=== PATIENT | male | born 1940 | race Caucasian/White ===

== ENCOUNTER 2023-04-07 12:50 | Inpatient (IN) ==
[2023-04-07 13:02] LABS: POC Calcium, Ionized 1.02 (1.16-1.32); POC Creatinine 2.7 (0.6-1.2); POC Potassium 3.8 (3.3-5.1)
[2023-04-07] MEDS ORDERED: 0.9 % SODIUM CHLORIDE 1,000 ML IV ONE (13:07)
--- NOTE | 2023-04-07 13:09 | Emergency Department Note ---
HPI General Chief complaint: Bleeding Other Stated complaint: dark colored stools Time Seen by Provider: 04/07/23 12:56 Source: patient Mode of arrival: EMS Limitations: no limitations History of Present Illness HPI Narrative: Narrative: This patient presents by EMS with complaint of possible GI bleed. Patient began Dinar note dark-colored stools last night. They have become more profuse and he passed a large black tarry stool this morning. He also became very weak which is why EMS was requested. Patient does endorse some abdominal discomfort, primarily in the upper abdomen. He has not had any vomiting. He has not noted any bright red blood, and before yesterday did not note any color change to his stools. He does endorse he had a bit of diarrhea. He is been without fevers or chills. He has no prior history of GI bleed. He does have a feeding tube which was placed in June. The patient and his family cannot recall if it is a G- tube or a J-tube. They report that it was placed due to complications of aspiration. Patient also has history significant for cardiac valve replacement. He does take Coumadin due to having a mechanical valve. They did check his INR this morning and report it was 3.6. He is not having any chest discomfort. He does endorse feeling weak and unable to try to stand or walk due to feeling weak. He typically completes his ADLs without difficulty. Related Data Home Medications Medication Instructions Recorded Confirmed allopurinol 100 mg tablet 200 mg PO QDAY 01/12/23 03/24/23 aspirin 81 mg tablet,delayed 81 mg PO QDAY 01/12/23 03/24/23 release dutasteride 0.5 mg capsule 0.5 mg PO QDAY 01/12/23 03/24/23 ezetimibe 10 mg tablet 10 mg PO QDAY 01/12/23 03/24/23 lansoprazole 30 mg capsule,delayed 30 mg PO QDAY 02/05/23 03/24/23 release potassium chloride 10 mEq 20 meq PO BID 02/05/23 03/24/23 tablet,extended release tamsulosin 0.4 mg capsule (Flomax) 0.4 mg PO BID 02/05/23 03/24/23 topiramate 100 mg tablet 150 mg PO BID 02/05/23 03/24/23 torsemide 100 mg tablet 100 mg PO BID 02/05/23 03/24/23 Previous Rx's Medication Instructions Recorded nystatin 100,000 unit/gram topical 1 applic topical TID #60 grams 02/05/23 powder Jevity 8 oz feeding tube Q4H #1 Bottle 02/10/23 ondansetron 8 mg disintegrating 8 mg PO Q6H #120 tabs 02/19/23 tablet oxycodone-acetaminophen 7.5 mg-325 1 tab PO QID #120 tabs 02/19/23 mg tablet amoxicillin 500 mg tablet 500 mg PO QDAY #32 tabs 03/03/23 metoclopramide HCl 10 mg tablet 10 mg PO BID PRN Nausea #90 tabs 03/03/23 warfarin 5 mg tablet 5 mg PO QDAY #90 tabs 03/03/23 duloxetine 60 mg capsule,delayed 60 mg PO QDAY #90 caps 03/20/23 release hydroxyzine HCl 25 mg tablet 25 mg PO TID PRN itching #90 tabs 03/20/23 Allergies Allergy/AdvReac Type Severity Reaction Status Date / Time omeprazole Allergy Mild Rash Verified 04/07/23 15:19 atorvastatin Allergy Unknown unknown Verified 04/07/23 12:55 Sulfa (Sulfonamide AdvReac Severe toxic Verified 04/07/23 15:19 Antibiotics) hepatitis Zolpidem [From Ambien] AdvReac Mild sleep Verified 04/07/23 15:19 walking Review of Systems ROS ROS Narrative: Narrative: Pertinent positives and negatives as noted in HPI. All other systems reviewed and negative. PFSH Narrative Patient History Narrative: Narrative: Medical/Surgical/Family History All Active Problems (Updated 04/07/23 @ 17:44 by Zonia Glover PA-C) Acute upper GI bleed (Acute) Other low back pain (Chronic) Constipation (Chronic) Depression (Chronic) Spinal cord stimulator status (Chronic) Pruritus (Chronic) CHF (congestive heart failure) (Chronic) S/P aortic valve replacement (Chronic) Aspiration of fluid as cause of abnormal reaction of patient or of later complication (Chronic) Iron deficiency anemia (Chronic) Candidiasis of genitalia (Chronic) Back pain (Chronic) Leg pain (Chronic) Constipation (Chronic) Thoracic spine pain (Chronic) Knee pain (Chronic) Swelling of joint, wrist, left (Chronic) Right wrist pain (Chronic) Right hand pain (Chronic) Thoracolumbar back pain (Chronic) Polyarthralgia (Chronic) Myalgia (Chronic) Paresthesia and pain of both upper extremities (Chronic) Spondylosis without myelopathy or radiculopathy, 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, lumbar region (Chronic) Radiculopathy, lumbar region (Chronic) Left leg pain (Chronic) Chronic pain (Chronic) Low back pain (Chronic) Heart disease (Chronic) History of tobacco use (Chronic) Esophageal reflux (Chronic) Hypertension (Chronic) Foot ulcer, left (Chronic) Hypoxia (Chronic) Nausea & vomiting (Chronic) Benign prostatic hyperplasia with urinary frequency (Chronic) Medical History Aspiration of fluid as cause of abnormal reaction of patient or of later complication Back pain Candidiasis of genitalia CHF (congestive heart failure) Chronic pain Constipation Depression Esophageal reflux Foot ulcer, left Heart disease s/p AVR History of tobacco use Hypertension Hypoxia Iron deficiency anemia Knee pain Left leg pain Leg pain Low back pain Myalgia Nausea & vomiting Other low back pain Paresthesia and pain of both upper extremities Polyarthralgia Pruritus Radiculopathy, lumbar region Right hand pain Right wrist pain Spinal cord stimulator status Spondylosis without myelopathy or radiculopathy, lumbar region Spondylosis without myelopathy or radiculopathy, lumbosacral region Swelling of joint, wrist, left Thoracic spine pain Thoracolumbar back pain Surgical History History of carpal tunnel surgery (~1992) Bilateral History of cataract surgery (~2013) Bilateral History of cervical spinal surgery (~03/1998) History of colonoscopy (02/06/17) History of endoscopic gastrointestinal surgery (~06/2022) History of esophagogastroduodenoscopy (EGD) (11/19/20) History of eye surgery Retinal detachment History of heart valve replacement (~1998) History of hemorrhoidectomy (02/06/17) History of hernia repair (04/23/20) History of nasal septoplasty (01/05/19) History of surgery SCS Permanent w/sed 11/10 SCS Trial w/sed 10/27/201910/09 MBB L2-S1 bilat w/o sed 09/24/201705/09 LESI #1 L4-5 w/o sed 04/28/2017 History of tonsillectomy (~1946) S/P aortic valve replacement Family History Family/Other Abdominal aortic aneurysm (AAA) Malignant tumor of breast Malignant tumor of colon Coronary arteriosclerosis DM type 2 (diabetes mellitus, type 2) Carcinoma of prostate Stroke Mother Malignant tumor of breast Aunt DM type 2 (diabetes mellitus, type 2) Father Heart attack Stroke Uncle Carcinoma of prostate Social History Smoking Status: Never smoker Alcohol Intake Frequency: does not drink Substance Use: does not use Exam Narrative Narrative: Narrative: Vital signs noted General: mild distress. Skin: Warm. Dry. No rash. Normal color. Eyes: PERRL. EOMI. Mouth: Membranes moist. Normal inspection. Neck: Good ROM. No meningeal signs. Supple. Cardiovascular: Regular rate and rhythm. Systolic murmur Respiratory: No respiratory distress. Breath sounds equal. No wheezing/rales/rhonchi. Gastrointestinal: Abdomen soft. Feeding tube in place to abdominal wall. Focal tenderness palpation of the upper abdomen. No rebound tenderness or guarding. There are some remanence from the patient's prior bowel movement that do appear to be melanotic. On AMINATA the patient has frankly bloody stool which is dark in appearance. Is guaiac positive. Extremities: No tenderness. No swelling. No erythema. No edema. Good peripheral pulses x 4 Neurological: No focal neurological deficits observed. CN 2-12 intact. Alert. Oriented x 3 General Limitations: no limitations Course Course Course Narrative: The following orders are placed and reviewed by myself: IV access established. Patient does have low blood pressure upon arrival and is given normal saline for hypotension CBC and CHEM panel reviewed Hematocrit on Chem-8 is 27, coinciding with hemoglobin of 9. Labs CBC Chem-8 creatinine is 1.3. BUN is 21 H&H shows mild decrease compared to prior lab values Based on acute blood loss and patient's hypotension 2 units of crossmatched blood were ordered. Did speak with college counselor who is available for daytime emergent procedures, Dr. Alva, who will take the patient to endoscopy suite. He asked that the patient be given a unit of plasma and lieu of vitamin K for reversal of Coumadin. He also recommends the patient receive only blood products for hypotension and not IV fluid. Patient transferred to endoscopy suite with disposition after procedure to be determined by Dr. Alva. Vital Signs Vital signs: Vital Signs Temperature 97.7 F 04/07/23 12:50 Pulse Rate 113 H 04/07/23 12:50 Respiratory Rate 16 04/07/23 12:50 Blood Pressure 88/64 04/07/23 12:50 Oxygen Delivery Method Room Air 04/07/23 12:50 Oxygen Flow Rate (L/min) 3 04/07/23 12:50 Temperature 97.7 F 04/07/23 12:50 Pulse Rate 97 H 04/07/23 16:57 Respiratory Rate 14 04/07/23 16:57 Blood Pressure 109/71 04/07/23 16:56 Pulse Oximetry (%) 97 04/07/23 16:57 Oxygen Delivery Method Nasal Cannula 04/07/23 16:07 Oxygen Flow Rate (L/min) 3 04/07/23 16:07 MDM MDM Narrative Medical decision making narrative: Narrative: Lab Data 04/07/23 13:12 04/07/23 13:12 Labs: Lab Results 04/07/23 04/07/23 04/07/23 Range/Units 12:59 13:12 13:12 WBC 14.3 H (4.5-11.0) K/mcL RBC 2.95 L (4.63-6.08) M/mcL Hgb 9.1 L (13.7-17.5) g/dL Hct 27.1 L (40.1-51.0) % POC Hct 28.0 L (41-55) MCV 91.9 (80.0-100.0) fL MCH 30.8 (26.0-34.0) pg MCHC 33.6 (31.0-36.0) g/dL RDW 15.4 H (11.5-14.5) % Plt Count 278 (140-440) K/mcL MPV 10.9 (8.8-12.5) fL Immature Gran % (Auto) 0.4 (0.0-0.5) % Neut % (Auto) 49.2 (38.0-78.0) % Lymph % (Auto) 38.8 (15.5-49.0) % [place] % (Auto) 8.6 (1.0-12.0) % Eos % (Auto) 2.3 (0.0-7.0) % Baso % (Auto) 0.7 (0.0-2.0) % Lymph # (Auto) 5.54 H (1.50-4.80) K/mcL [place] # (Auto) 1.22 H (0.10-0.90) K/mcL Eos # (Auto) 0.33 (0.00-0.70) K/mcL Baso # (Auto) 0.10 (0.00-0.30) K/mcL Immature Gran # 0.05 (0.00-0.05) K/mcl Absolute Neutrophils 7.02 (1.80-8.00) K/mcL PT INR POC Sodium 138 (133-145) Sodium 137 (133-145) mmol/L POC Potassium 3.8 (3.3-5.1) Potassium 3.9 (3.3-5.1) mmol/L POC Chloride 101 (96-108) Chloride 100 (96-108) mmol/L Carbon Dioxide 22 (22-30) mmol/L POC Total CO2 22.0 (22-30) Anion Gap 15.0 (8.0-16.0) POC BUN 53 H (6-20) BUN 57 H (8-23) mg/dL Creatinine 2.2 H (0.7-1.2) mg/dL POC Creatinine 2.7 H (0.6-1.2) GFR Calculation 27 Glucose 205 H (70-105) mg/dL POC Glucose 201 H (70-105) Calcium 8.2 L (8.6-10.4) mg/dL POC WB Ioniz Calcium 1.02 L (1.16-1.32) Total Bilirubin 0.2 (0.1-1.0) mg/dL AST 21 (<40) U/L ALT 21 (<40) U/L Alkaline Phosphatase 74 (39-117) U/L Total Protein 5.4 L (5.9-8.4) gm/dL Albumin 3.4 (3.2-5.2) gm/dL Globulin 2.0 L (2.2-3.7) gm/dL Albumin/Globulin Ratio 1.7 (1.0-2.3) 04/07/23 04/07/23 Range/Units 13:12 14:05 WBC (4.5-11.0) K/mcL RBC (4.63-6.08) M/mcL Hgb (13.7-17.5) g/dL Hct (40.1-51.0) % POC Hct (41-55) MCV (80.0-100.0) fL MCH (26.0-34.0) pg MCHC (31.0-36.0) g/dL RDW (11.5-14.5) % Plt Count (140-440) K/mcL MPV (8.8-12.5) fL Immature Gran % (Auto) (0.0-0.5) % Neut % (Auto) (38.0-78.0) % Lymph % (Auto) (15.5-49.0) % [place] % (Auto) (1.0-12.0) % Eos % (Auto) (0.0-7.0) % Baso % (Auto) (0.0-2.0) % Lymph # (Auto) (1.50-4.80) K/mcL [place] # (Auto) (0.10-0.90) K/mcL Eos # (Auto) (0.00-0.70) K/mcL Baso # (Auto) (0.00-0.30) K/mcL Immature Gran # (0.00-0.05) K/mcl Absolute Neutrophils (1.80-8.00) K/mcL PT TNP 41.7 H INR TNP 4.2 H POC Sodium (133-145) Sodium (133-145) mmol/L POC Potassium (3.3-5.1) Potassium (3.3-5.1) mmol/L POC Chloride (96-108) Chloride (96-108) mmol/L Carbon Dioxide (22-30) mmol/L POC Total CO2 (22-30) Anion Gap (8.0-16.0) POC BUN (6-20) BUN (8-23) mg/dL Creatinine (0.7-1.2) mg/dL POC Creatinine (0.6-1.2) GFR Calculation Glucose (70-105) mg/dL POC Glucose (70-105) Calcium (8.6-10.4) mg/dL POC WB Ioniz Calcium (1.16-1.32) Total Bilirubin (0.1-1.0) mg/dL AST (<40) U/L ALT (<40) U/L Alkaline Phosphatase (39-117) U/L Total Protein (5.9-8.4) gm/dL Albumin (3.2-5.2) gm/dL Globulin (2.2-3.7) gm/dL Albumin/Globulin Ratio (1.0-2.3) Discharge Plan Patient/Caregiver Discharge Instructions Pt seen by MEDICAL BILLING AND CODING INSTRUCTOR/PA only: Yes Clinical Impression: Acute upper GI bleed Patient Disposition: Xfer As Outpt/Obs ([facility]) Condition: Good Discharge Date/Time: 04/07/23 15:25
[2023-04-07] MEDS ORDERED: PANTOPRAZOLE 40 MG VIAL IV ONE (13:36)
[2023-04-07 13:38] LABS: Basophils % (Auto) 0.7 % (0.0-2.0); Eosinophils # (Auto) 0.33 K/mcL (0.00-0.70); Eosinophils % (Auto) 2.3 % (0.0-7.0); Hematocrit 27.1 % (40.1-51.0); Hemoglobin 9.1 g/dL (13.7-17.5); Lymphocytes # (Auto) 5.54 K/mcL (1.50-4.80); Lymphocytes % (Auto) 38.8 % (15.5-49.0); Mean Cell Volume 91.9 fL (80.0-100.0); Mean Corpuscular HGB Conc 33.6 g/dL (31.0-36.0); Mean Platelet Volume 10.9 fL (8.8-12.5); Monocytes # (Auto) 1.22 K/mcL (0.10-0.90); Monocytes % (Auto) 8.6 % (1.0-12.0); Neutrophils % (Auto) 49.2 % (38.0-78.0); Platelet Count 278 K/mcL (140-440); RBC 2.95 M/mcL (4.63-6.08); Red Cell Distribution Width 15.4 % (11.5-14.5); WBC 14.3 K/mcL (4.5-11.0)
[2023-04-07 13:55] LABS: ALT/SGPT 21 U/L (<40); AST/SGOT 21 U/L (<40); Albumin 3.4 gm/dL (3.2-5.2); Albumin/Globulin Ratio 1.7 (1.0-2.3); Alkaline Phosphatase 74 U/L (39-117); Bilirubin,Total 0.2 mg/dL (0.1-1.0); Blood Urea Nitrogen 57 mg/dL (8-23); Calcium 8.2 mg/dL (8.6-10.4); Carbon Dioxide 22 mmol/L (22-30); Chloride 100 mmol/L (96-108); Glomerular Filtration Rate 27; Glucose 205 mg/dL (70-105)
--- NOTE | 2023-04-07 14:00 | XRay Report ---
HISTORY: Increased weakness, dark-colored stools FINDINGS: The lungs are clear and normally expanded. The heart size and pulmonary vasculature are normal. No adenopathy is detected. There is no pleural effusion. There has been a prior sternotomy. There are two spinal stimulator electrodes in the midthoracic spinal canal. IMPRESSION: Normal exam Interpreted and Authenticated by: Jarvis Clemente 04/07/23
[2023-04-07 14:52] LABS: INR 4.2 (0.9-1.1); Prothrombin Time 41.7 sec (11.9-14.5)
[2023-04-07] MEDS ORDERED: KETAMINE 50 MG/ML ML IV PRN (15:13)
[2023-04-07] MEDS ORDERED: PROPOFOL 200 MG/20 ML VIAL IV SCH (15:15)
[2023-04-07] MEDS ORDERED: MIDAZOLAM 2 MG/2 ML VIAL IV SCH (15:15)
[2023-04-07] MEDS ORDERED: MIDAZOLAM 2 MG/2 ML VIAL ONE (15:37)
[2023-04-07] MEDS ORDERED: EPINEPHrine 1 MG/ML VIAL IJ ONE (15:50)
--- NOTE | 2023-04-07 16:44 | Internal Med History&Physical ---
[facility] History of Present Illness Patient information: Note initiated : 04/07/23 at 4:44 pm Service Date, if different from initiated Date: [] Patient: Ishmael Miller 82 y/o M admitted on for dark colored stools. Chief Complaint: [] History of present illness: Patient is a 82 years old male with history of mechanical valve chronically anticoagulated on warfarin, CHF on torsemide, hypertension, GERD, restless leg syndrome, BPH, gout, iron deficiency anemia, CHF, chronic back pain, GERD, neuropathy, foot ulcer, tobacco use presented with 1 day history of melena, and upper abdominal pain. This progressed and he passed a large black tarry stool in the morning. Patient reported no hematemesis. There is no prior history of GI bleed. He has a feeding tube which was placed in June 2023. Apparently this was placed due to complications of aspiration. Patient was hypotensive with blood pressure of 90/66, tachycardia 100 bpm. WBC 14.3, hemoglobin 9.1, INR 4.2, BUN 57, creatinine 2.2 consistent with chronic kidney disease, glucose 205. Normal LFTs. Per verbal report patient went for urgent endoscopy and was found to have gastric ulcer with bleeding vessel status post epinephrine and hemostasis was secured. Dr. Alva from GI's recommended to keep patient on Protonix, give 1 unit of plasma, and 2 units of PRBC and can resume therapeutic Lovenox tomorrow. Review of system Patient reports generalized fatigue, melena, some diarrhea, left-sided upper abdominal pain No chest pain, palpitations No excessive thirst No headache, no visual disturbance No easy bruising No focal deficits Physical examination General: Alert,, chronically ill-appearing, in no acute distress Skin: Warm. Dry. No rash. Normal color. Eyes: PERRL. EOMI. Mouth: Membranes moist. Normal inspection. Neck: Good ROM. No meningeal signs. Supple. Cardiovascular: Regular rate and rhythm. Systolic murmur Respiratory: No respiratory distress. Breath sounds equal. No wheezing/rales/rhonchi. Gastrointestinal: Abdomen soft. Mild tenderness in left upper quadrant, no rebound or rigidity. Feeding tube in the mid abdomen in place. In ER patient had jon bloody stool and was guaiac positive. Extremities: No tenderness. No swelling. No erythema. No edema. Good peripheral pulses x 4 Neurological: No focal neurological deficits observed. CN 2-12 intact. Alert. Oriented x 3 Assessment and plan Upper GI bleed Gastric ulcer with bleeding vessel status post epinephrine with hemostasis Mechanical heart valve on chronic anticoagulation Supratherapeutic INR Anemia in the setting of blood loss CHF Hypertension Hyperglycemia GERD Restless leg syndrome Tube feed dependent Plan Patient to be monitored in PCU Hold warfarin and aspirin Start patient on Protonix drip 2 units PRBC stat 1 unit FFP Serial H&H N.p.o. for now Plan for resuming therapeutic Lovenox tomorrow if remains stable Obtain A1c On GI prophylaxis Full code Critical care time 55 minutes [facility] PFS All Active Problems (Updated 04/07/23 @ 17:44 by Zonia Glover PA-C) Acute upper GI bleed (Acute) Other low back pain (Chronic) Constipation (Chronic) Depression (Chronic) Spinal cord stimulator status (Chronic) Pruritus (Chronic) CHF (congestive heart failure) (Chronic) S/P aortic valve replacement (Chronic) Aspiration of fluid as cause of abnormal reaction of patient or of later complication (Chronic) Iron deficiency anemia (Chronic) Candidiasis of genitalia (Chronic) Back pain (Chronic) Leg pain (Chronic) Constipation (Chronic) Thoracic spine pain (Chronic) Knee pain (Chronic) Swelling of joint, wrist, left (Chronic) Right wrist pain (Chronic) Right hand pain (Chronic) Thoracolumbar back pain (Chronic) Polyarthralgia (Chronic) Myalgia (Chronic) Paresthesia and pain of both upper extremities (Chronic) Spondylosis without myelopathy or radiculopathy, 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, lumbar region (Chronic) Radiculopathy, lumbar region (Chronic) Left leg pain (Chronic) Chronic pain (Chronic) Low back pain (Chronic) Heart disease (Chronic) History of tobacco use (Chronic) Esophageal reflux (Chronic) Hypertension (Chronic) Foot ulcer, left (Chronic) Hypoxia (Chronic) Nausea & vomiting (Chronic) Benign prostatic hyperplasia with urinary frequency (Chronic) Medical History Aspiration of fluid as cause of abnormal reaction of patient or of later complication Back pain Candidiasis of genitalia CHF (congestive heart failure) Chronic pain Constipation Depression Esophageal reflux Foot ulcer, left Heart disease s/p AVR History of tobacco use Hypertension Hypoxia Iron deficiency anemia Knee pain Left leg pain Leg pain Low back pain Myalgia Nausea & vomiting Other low back pain Paresthesia and pain of both upper extremities Polyarthralgia Pruritus Radiculopathy, lumbar region Right hand pain Right wrist pain Spinal cord stimulator status Spondylosis without myelopathy or radiculopathy, lumbar region Spondylosis without myelopathy or radiculopathy, lumbosacral region Swelling of joint, wrist, left Thoracic spine pain Thoracolumbar back pain Surgical History History of carpal tunnel surgery (~1992) Bilateral History of cataract surgery (~2013) Bilateral History of cervical spinal surgery (~03/1998) History of colonoscopy (02/06/17) History of endoscopic gastrointestinal surgery (~06/2022) History of esophagogastroduodenoscopy (EGD) (11/19/20) History of eye surgery Retinal detachment History of heart valve replacement (~1998) History of hemorrhoidectomy (02/06/17) History of hernia repair (04/23/20) History of nasal septoplasty (01/05/19) History of surgery SCS Permanent w/sed 11/10 SCS Trial w/sed 10/27/201910/09 MBB L2-S1 bilat w/o sed 09/24/201705/09 LESI #1 L4-5 w/o sed 04/28/2017 History of tonsillectomy (~194) S/P aortic valve replacement Family History Family/Other Abdominal aortic aneurysm (AAA) Malignant tumor of breast Malignant tumor of colon Coronary arteriosclerosis DM type 2 (diabetes mellitus, type 2) Carcinoma of prostate Stroke Mother Malignant tumor of breast Aunt DM type 2 (diabetes mellitus, type 2) Father Heart attack Stroke Uncle Carcinoma of prostate Social History household members: other marital status: education level: college smoking status: Never smoker alcohol intake frequency: does not drink substance use type: does not use seatbelt use: always working smoke detector in home: Yes MEDS/ALLERGIES Home Medications and Allergies Home Medications Medication Instructions Recorded Confirmed Type allopurinol 100 mg tablet 200 mg PO HS 01/12/23 04/07/23 History aspirin 81 mg tablet,delayed 81 mg PO QDAY 01/12/23 04/07/23 History release dutasteride 0.5 mg capsule 0.5 mg PO HS 01/12/23 04/07/23 History ezetimibe 10 mg tablet 10 mg PO HS 01/12/23 04/07/23 History lansoprazole 30 mg capsule,delayed 30 mg PO QDAY 02/05/23 04/07/23 History release potassium chloride 10 mEq 20 meq PO BID 02/05/23 04/07/23 History tablet,extended release tamsulosin 0.4 mg capsule (Flomax) 0.4 mg PO BID 02/05/23 04/07/23 History topiramate 100 mg tablet 150 mg PO BID 02/05/23 04/07/23 History torsemide 100 mg tablet 100 mg PO BID 02/05/23 04/07/23 History Jevity 8 oz feeding tube Q4H #1 Bottle 02/10/23 04/07/23 Rx Advanced Probiotic 1 cap PO QAM 04/07/23 04/07/23 History cetirizine 10 mg tablet (Zyrtec) 10 mg PO QDAY PRN Allergy Symptoms 04/07/23 04/07/23 History docusate sodium 100 mg capsule 100 mg PO HS 04/07/23 04/07/23 History (Stool Softener) duloxetine 60 mg capsule,delayed 30 mg PO QDAY 04/07/23 04/07/23 History release ferrous sulfate 325 mg (65 mg 325 mg PO QDAY 04/07/23 04/07/23 History iron) tablet,delayed release guaifenesin 600 mg tablet, 600 mg PO QAM 04/07/23 04/07/23 History extended release 12 hr (Mucinex) metoclopramide HCl 10 mg tablet 10 mg PO BID 04/07/23 04/07/23 History ondansetron 8 mg disintegrating 8 mg PO Q6H PRN Nausea 04/07/23 04/07/23 History tablet oxycodone-acetaminophen 7.5 mg-325 1 tab PO BID 04/07/23 04/07/23 History mg tablet polyethylene glycol 3350 17 gram 17 g PO HS 04/07/23 04/07/23 History oral powder packet (Miralax) pregabalin 225 mg capsule 225 mg PO BID 04/07/23 04/07/23 History sennosides 8.6 mg tablet (Senokot) 8.6 mg PO QHS 04/07/23 04/07/23 History warfarin 5 mg tablet 7.5 mg PO QDAY 04/07/23 04/07/23 History Allergies Allergy/AdvReac Type Severity Reaction Status Date / Time omeprazole Allergy Mild Rash Verified 04/07/23 15:19 atorvastatin Allergy Unknown unknown Verified 04/07/23 12:55 Sulfa (Sulfonamide AdvReac Severe toxic Verified 04/07/23 15:19 Antibiotics) hepatitis Zolpidem [From Ambien] AdvReac Mild sleep Verified 04/07/23 15:19 walking EXAM Constitutional Vitals: Temp Pulse Resp BP Pulse Ox O2 Del Method O2 Flow Rate 97.7 F 100 H 16 94/66 100 Nasal Cannula 3 04/07/23 12:50 04/07/23 16:20 04/07/23 16:20 04/07/23 16:16 04/07/23 16:20 04/07/23 16:07 04/07/23 16:07 DATA Data Completed and Pending Labs: Labs from last 24 hours 04/07/23 04/07/23 04/07/23 14:05 13:12 13:12 WBC RBC Hgb Hct POC Hct MCV MCH MCHC RDW Plt Count MPV Immature Gran % (Auto) Neut % (Auto) Lymph % (Auto) [place] % (Auto) Eos % (Auto) Baso % (Auto) Lymph # (Auto) [place] # (Auto) Eos # (Auto) Baso # (Auto) Immature Gran # Absolute Neutrophils PT 41.7 H TNP INR 4.2 H TNP POC Sodium Sodium 137 POC Potassium Potassium 3.9 POC Chloride Chloride 100 Carbon Dioxide 22 POC Total CO2 Anion Gap 15.0 POC BUN BUN 57 H Creatinine 2.2 H POC Creatinine GFR Calculation 27 Glucose 205 H POC Glucose Calcium 8.2 L POC WB Ioniz Calcium Total Bilirubin 0.2 AST 21 ALT 21 Alkaline Phosphatase 74 Total Protein 5.4 L Albumin 3.4 Globulin 2.0 L Albumin/Globulin Ratio 1.7 04/07/23 04/07/23 13:12 12:59 WBC 14.3 H RBC 2.95 L Hgb 9.1 L Hct 27.1 L POC Hct 28.0 L MCV 91.9 MCH 30.8 MCHC 33.6 RDW 15.4 H Plt Count 278 MPV 10.9 Immature Gran % (Auto) 0.4 Neut % (Auto) 49.2 Lymph % (Auto) 38.8 [place] % (Auto) 8.6 Eos % (Auto) 2.3 Baso % (Auto) 0.7 Lymph # (Auto) 5.54 H [place] # (Auto) 1.22 H Eos # (Auto) 0.33 Baso # (Auto) 0.10 Immature Gran # 0.05 Absolute Neutrophils 7.02 PT INR POC Sodium 138 Sodium POC Potassium 3.8 Potassium POC Chloride 101 Chloride Carbon Dioxide POC Total CO2 22.0 Anion Gap POC BUN 53 H BUN Creatinine POC Creatinine 2.7 H GFR Calculation Glucose POC Glucose 201 H Calcium POC WB Ioniz Calcium 1.02 L Total Bilirubin AST ALT Alkaline Phosphatase Total Protein Albumin Globulin Albumin/Globulin Ratio A/P Time Spent With Patient Time: Total time spent is greater than 50% in coordination of care (as documented) at patient's floor/unit and/or counseling patient:
[2023-04-07] MEDS: PANTOPRAZOLE 80 MG in 0.9 % SODIUM CHLORIDE 100 ML IV SCH (16:50)
[2023-04-07] MEDS ORDERED: ONDANSETRON 4 MG/2 ML VIAL IV PRN (17:03)
[2023-04-07] MEDS ORDERED: PANTOPRAZOLE 80 MG in 0.9 % SODIUM CHLORIDE 100 ML IV SCH (17:30)
[2023-04-07] MEDS ORDERED: 0.9 % SODIUM CHLORIDE 250 ML IV SCH (17:30)
[2023-04-07] MEDS: DOCUSATE SODIUM 100 MG CAPSULE PO SCH (20:31)
[2023-04-07] MEDS: 0.9 % SODIUM CHLORIDE 10 ML SYRINGE IV SCH (20:32)
[2023-04-07] MEDS: 0.9 % SODIUM CHLORIDE 250 ML IV SCH (22:15)
[2023-04-08] MEDS: PANTOPRAZOLE 80 MG in 0.9 % SODIUM CHLORIDE 100 ML IV SCH ×5 (00:27→21:20)
[2023-04-08] MEDS: 0.9 % SODIUM CHLORIDE 10 ML SYRINGE IV SCH ×4 (01:10→22:45)
[2023-04-08 01:52] LABS: Basophils # (Auto) 0.07 K/mcL (0.00-0.30); Basophils % (Auto) 0.6 % (0.0-2.0); Eosinophils # (Auto) 0.02 K/mcL (0.00-0.70); Eosinophils % (Auto) 0.2 % (0.0-7.0); Hematocrit 26.7 % (40.1-51.0); Hemoglobin 9.3 g/dL (13.7-17.5); Lymphocytes # (Auto) 2.17 K/mcL (1.50-4.80); Lymphocytes % (Auto) 17.6 % (15.5-49.0); Mean Cell Volume 89.3 fL (80.0-100.0); Mean Corpuscular HGB Conc 34.8 g/dL (31.0-36.0); Mean Platelet Volume 10.4 fL (8.8-12.5); Monocytes # (Auto) 0.86 K/mcL (0.10-0.90); Neutrophils % (Auto) 74.3 % (38.0-78.0); Platelet Count 220 K/mcL (140-440); RBC 2.99 M/mcL (4.63-6.08); Red Cell Distribution Width 14.6 % (11.5-14.5); WBC 12.3 K/mcL (4.5-11.0)
[2023-04-08 07:20] LABS: INR 2.6 (0.9-1.1); Prothrombin Time 28.4 sec (11.9-14.5)
[2023-04-08 07:36] LABS: Basophils # (Auto) 0.09 K/mcL (0.00-0.30); Basophils % (Auto) 0.8 % (0.0-2.0); Eosinophils # (Auto) 0.11 K/mcL (0.00-0.70); Hematocrit 27.1 % (40.1-51.0); Hemoglobin 9.5 g/dL (13.7-17.5); Lymphocytes # (Auto) 2.43 K/mcL (1.50-4.80); Lymphocytes % (Auto) 22.5 % (15.5-49.0); Mean Cell Volume 88.9 fL (80.0-100.0); Mean Corpuscular HGB Conc 35.1 g/dL (31.0-36.0); Mean Platelet Volume 10.6 fL (8.8-12.5); Monocytes % (Auto) 8.3 % (1.0-12.0); Platelet Count 222 K/mcL (140-440); RBC 3.05 M/mcL (4.63-6.08); Red Cell Distribution Width 14.9 % (11.5-14.5); WBC 10.8 K/mcL (4.5-11.0)
[2023-04-08 07:56] LABS: Blood Urea Nitrogen 64 mg/dL (8-23); Calcium 8.2 mg/dL (8.6-10.4); Carbon Dioxide 25 mmol/L (22-30); Chloride 109 mmol/L (96-108); Glomerular Filtration Rate 30; Glucose 108 mg/dL (70-105)
--- NOTE | 2023-04-08 08:30 | Internal Med Progress Note ---
SUBJECTIVE Subjective Patient information: Note initiated : 04/08/23 at 8:29 am Service Date, if different from initiated Date: [] Patient: Ishmael Miller 82 y/o M admitted on 04/07/23 for dark colored stools. Chief Complaint: [] Additional PMFSH (Level 3 Only): History of present illness: Patient is a 82 years old male with history of mechanical valve chronically anticoagulated on warfarin, CHF on torsemide, hypertension, GERD, restless leg s yndrome, BPH, gout, iron deficiency anemia, CHF, chronic back pain, GERD, neuropathy, foot ulcer, tobacco use presented with 1 day history of melena, and upper abdominal pain. This progressed and he passed a large black tarry stool in the morning. Patient reported no hematemesis. There is no prior history of GI bleed. He has a feeding tube which was placed in June 2023. Apparently this was placed due to complications of aspiration. Patient was hypotensive with blood pressure of 90/66, tachycardia 100 bpm. WBC 14.3, hemoglobin 9.1, INR 4.2, BUN 57, creatinine 2.2 consistent with chronic kidney disease, glucose 205. Normal LFTs. Per verbal report patient went for urgent endoscopy and was found to have gastric ulcer with bleeding vessel status post epinephrine and hemostasis was secured. Dr. Alva from GI's recommended to keep patient on Protonix, give 1 unit of plasma, and 2 units of PRBC and can resume therapeutic Lovenox tomorrow. 04/08 It was reported patient had x4 bloody stools, RN reported was bright red blood. No nausea or vomiting. His vitals are stable. He is satting 95% on 1 L nasal cannula oxygen which likely can be weaned off. He received 2 units PRBC and hemoglobin is 9.5, hematocrit 27, INR down to 2.6 from 4.2 after receiving FFPx1. Cr 2.0 down from 2.2, BUN 64 up from 57. Procedure note not available to me. Patient reports left upper abdominal pain has resolved. He will be reviewed by GI and then decision can be made to resume his anticoagulation. Review of system Patient reports no fever or chills, he had bloody stools, his abdominal pain has resolved. No nausea or vomiting No chest pain, palpitations No excessive thirst No headache, no visual disturbance No easy bruising No focal deficits Physical examination General: Alert,, chronically ill-appearing, resting in bed comfortably Skin: Warm. Dry. No rash. Normal color. Eyes: PERRL. EOMI. Mouth: Membranes moist. Normal inspection. Neck: Good ROM. No meningeal signs. Supple. Cardiovascular: Regular rate and rhythm. Systolic murmur Respiratory: No respiratory distress. Breath sounds equal. No wheezing/rales/rhonchi. Gastrointestinal: Abdomen soft. No tenderness, no rebound or rigidity feeding tube in the mid abdomen in place. Some bright red to dark blood in his diaper Extremities: No tenderness. No swelling. No erythema. No edema. Good peripheral pulses x 4 Neurological: No focal neurological deficits observed. CN 2-12 intact. Alert. Oriented x 3 Assessment and plan Upper GI bleed Gastric ulcer with bleeding vessel status post epinephrine with hemostasis, procedure note not available, on IV Protonix gtt. Mechanical heart valve on chronic anticoagulation Supratherapeutic INR, 4.2 Anemia in the setting of blood loss, status post 2 units PRBC and 1 unit FFP CHF Hypertension Hyperglycemia GERD Restless leg syndrome Tube feed dependent Plan Patient to be monitored in PCU Hold hold warfarin and aspirin Continue Protonix drip Serial H&H, may need more transfusion Left voicemail for Dr. Gregory from GI this morning N.p.o. Initial plan was to resume his therapeutic Lovenox however with his ongoing rectal bleed will hold off this morning until evidence of no more bleeding and seen by GI. Obtain A1c On GI prophylaxis Full code Critical care time 55 minutes Constitutional Vitals: Vital Signs Temp Pulse Resp BP Pulse Ox O2 Del Method O2 Flow Rate 97.7 F 77 18 130/66 93 Room Air 1 04/08/23 08:00 04/08/23 06:01 04/08/23 08:00 04/08/23 08:00 04/08/23 08:00 04/08/23 08:00 04/08/23 06:01 Period Temp Pulse Resp BP Sys/Denise Pulse Ox O2 Del Method O2 Flow Rate Last 24 Hr 97.3 F-98.4 F 41-116 13-33 81-137/56-82 92-100 Nasal Cannula- Room Air 1-3 Intake and Output 04/07/23 04/08/23 04/08/23 19:59 03:59 11:59 Intake Total 1520 686 0 Output Total 475 225 0 Balance 1045 461 0 Weight 92.079 kg 92.079 kg Intake & Output: Intake & Output 04/07/23 04/08/23 04/08/23 19:59 03:59 11:59 Intake Total 1520 686 0 Output Total 475 225 0 Balance 1045 461 0 Weight 92.079 kg 92.079 kg Intake: IV 1000 326 Sodium Chloride 0.9% 1,000 ml @ 1000 Wide Open IV [facility] Rx#: [id number] Sodium Chloride 0.9% 250 ml @ 250 20 mls/hr IV .[id number] [facility] Rx#: [id number] Protonix 80 mg In Sodium 76 Chloride 0.9% 100 ml @ 8 MG/HR 10 mls/hr IV Q10H [facility] Rx#: [id number] Oral 0 Blood Product 520 360 Output: Void Amount 225 0 Urine/Stool Mix 475 Other: Urine Appearance Clear Urine Color Yellow Urine Odor Normal Stool Color Dark Red Blood OBJ DATA Labs 04/08/23 07:03 04/08/23 05:23 Labs: Abnormal Lab Results 04/08/23 04/08/23 04/08/23 07:03 05:23 05:22 WBC RBC 3.05 L Hgb 9.5 L Hct 27.1 L POC Hct RDW 14.9 H Lymph # (Auto) Slope # (Auto) Absolute Neutrophils PT 28.4 H INR 2.6 H Chloride 109 H POC BUN BUN 64 H Creatinine 2.0 H POC Creatinine Glucose 108 H POC Glucose Calcium 8.2 L POC WB Ioniz Calcium Total Protein Globulin 04/08/23 04/07/23 04/07/23 01:10 14:05 13:12 WBC 12.3 H RBC 2.99 L Hgb 9.3 L Hct 26.7 L POC Hct RDW 14.6 H Lymph # (Auto) Slope # (Auto) Absolute Neutrophils 9.17 H PT 41.7 H INR 4.2 H Chloride POC BUN BUN 57 H Creatinine 2.2 H POC Creatinine Glucose 205 H POC Glucose Calcium 8.2 L POC WB Ioniz Calcium Total Protein 5.4 L Globulin 2.0 L 04/07/23 04/07/23 13:12 12:59 WBC 14.3 H RBC 2.95 L Hgb 9.1 L Hct 27.1 L POC Hct 28.0 L RDW 15.4 H Lymph # (Auto) 5.54 H Slope # (Auto) 1.22 H Absolute Neutrophils PT INR Chloride POC BUN 53 H BUN Creatinine POC Creatinine 2.7 H Glucose POC Glucose 201 H Calcium POC WB Ioniz Calcium 1.02 L Total Protein Globulin Meds: Medications Docusate Sodium (Docusate Sodium 100 Mg Capsule) 100 mg PO BID [facility] Last Admin: 04/07/23 20:31 Dose: Not Given Pantoprazole Sodium 80 mg/ (Sodium Chloride) 100 mls @ 10 mls/hr IV Q10H [facility] Last Admin: 04/08/23 06:36 Dose: Not Given Sodium Chloride (Sodium Chloride 0.9%) 250 mls @ 20 mls/hr IV .[id number] [facility] Last Infusion: 04/08/23 00:45 Dose: Infused Ondansetron HCl (Ondansetron 4 Mg/2 Ml Vial) 4 mg IV Q4HP PRN; Protocol PRN Reason: Nausea And Vomiting Sodium Chloride (0.9 % Sodium Chloride 10 Ml Syringe) 10 ml IV Q8 [facility] Last Admin: 04/08/23 05:20 Dose: 10 ml A/P Time Spent With Patient Time: Total time spent is greater than 50% in coordination of care (as documented) at patient's floor/unit and/or counseling patient: QUALITY VTE Deep Vein Thrombosis/Pulmonary Embolism Present on Admission: No
--- NOTE | 2023-04-08 09:16 | EGD Procedure Note ---
EGD Procedure Notes Procedure Information Patient information: Note initiated : 04/08/23 at 9:12 am Patient: Ishmael Miller 82 y/o M admitted on 04/07/23 for dark colored stools. Date of Procedure: 04/07/23 Pre-Op Diagnosis: Anemia. Melena. Post-Op Diagnosis: Gastric ulcer. Hiatal hernia. Procedure: EGD with control of bleed Procedure Narrative: The procedure, alternatives and risks were discussed with the patient and the patient's questions were answered. With endoscopist-administered intravenous sedation, the Olympus video endoscope was introduced into the esophagus. The esophagus, stomach, and duodenum were examined sequentially. The stomach was full of blood and clots, obscuring the view. This was suctioned with the scope. There was a 2cm ulcer with visible vessel at the base of the hiatal hernia, almost certainly NSAID or ASA induced. Hemostasis was achieved with heater probe and injection of epinephrine 1: 10,000. Hemotasis was achived. The PEG tube is in place. No bleeding site seen in the duodenum. The scope was withdrawn. Grafts/Implants: No Anesthesia: conscious sedation Findings: Gastric ulcer. Hiatal hernia. Complications: none Surgeon: Sid Gregory Estimated blood loss: 0 Specimens Removed/Pathology: none sent Condition: stable Disposition: same day Assessment: Gastric ulcer. Hiatal hernia. PPI infusion. Avoid NSAIDs/ASA. High dose PPI for lifetime. Repeat EGD in 6 weeks.
[2023-04-08] MEDS: DOCUSATE SODIUM 100 MG CAPSULE PO SCH ×2 (09:19→21:21)
[2023-04-08 10:02] LABS: Hemoglobin A1C 5.1 % Hgb (4.0-6.0)
[2023-04-08] MEDS: 0.9 % SODIUM CHLORIDE 250 ML IV SCH (12:15)
[2023-04-08] MEDS ORDERED: CETIRIZINE 10 MG TABLET PO PRN (12:32)
--- NOTE | 2023-04-08 12:43 | Internal Medicine Consult Note ---
HPI Date of Consult Consult Date: 04/08/23 Primary Care Provider: Bj Zimmerman MD Consult Narrative Patient Information: Note initiated : 04/08/23 at 12:35 pm Service Date, if different from initiated Date: [] Patient: Ishmael Miller 82 y/o M admitted on 04/08/23 for dark colored stools. 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 He presented yesterday for weakness and melena with INR 4.2 EGD revealed a 2cm ulcer with visible vessel, which was cauterized and injected with hemostasis achieved. He is now on PPI therapy. He continues to have melena. Hgb stable at 9.5 after 2 U PRBC. He is feeling better today. He is requesting to advance diet and his nurse is requesting to resume home medications. cc:: CC: Tj Terrell Review of Systems All systems: reviewed and no additional remarkable complaints except as stated PFSH PFSH All Active Problems (Updated 04/07/23 @ 17:44 by Zonia Glover PA-C) Acute upper GI bleed (Acute) Other low back pain (Chronic) Constipation (Chronic) Depression (Chronic) Spinal cord stimulator status (Chronic) Pruritus (Chronic) CHF (congestive heart failure) (Chronic) S/P aortic valve replacement (Chronic) Aspiration of fluid as cause of abnormal reaction of patient or of later complication (Chronic) Iron deficiency anemia (Chronic) Candidiasis of genitalia (Chronic) Back pain (Chronic) Leg pain (Chronic) Constipation (Chronic) Thoracic spine pain (Chronic) Knee pain (Chronic) Swelling of joint, wrist, left (Chronic) Right wrist pain (Chronic) Right hand pain (Chronic) Thoracolumbar back pain (Chronic) Polyarthralgia (Chronic) Myalgia (Chronic) Paresthesia and pain of both upper extremities (Chronic) Spondylosis without myelopathy or radiculopathy, 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, lumbar region (Chronic) Radiculopathy, lumbar region (Chronic) Left leg pain (Chronic) Chronic pain (Chronic) Low back pain (Chronic) Heart disease (Chronic) History of tobacco use (Chronic) Esophageal reflux (Chronic) Hypertension (Chronic) Foot ulcer, left (Chronic) Hypoxia (Chronic) Nausea & vomiting (Chronic) Benign prostatic hyperplasia with urinary frequency (Chronic) Medical History Aspiration of fluid as cause of abnormal reaction of patient or of later complication Back pain Candidiasis of genitalia CHF (congestive heart failure) Chronic pain Constipation Depression Esophageal reflux Foot ulcer, left Heart disease s/p AVR History of tobacco use Hypertension Hypoxia Iron deficiency anemia Knee pain Left leg pain Leg pain Low back pain Myalgia Nausea & vomiting Other low back pain Paresthesia and pain of both upper extremities Polyarthralgia Pruritus Radiculopathy, lumbar region Right hand pain Right wrist pain Spinal cord stimulator status Spondylosis without myelopathy or radiculopathy, lumbar region Spondylosis without myelopathy or radiculopathy, lumbosacral region Swelling of joint, wrist, left Thoracic spine pain Thoracolumbar back pain Surgical History History of carpal tunnel surgery (~1992) Bilateral History of cataract surgery (~2013) Bilateral History of cervical spinal surgery (~03/1998) History of colonoscopy (02/06/17) History of endoscopic gastrointestinal surgery (~06/2022) History of esophagogastroduodenoscopy (EGD) (11/19/20) History of eye surgery Retinal detachment History of heart valve replacement (~1998) History of hemorrhoidectomy (02/06/17) History of hernia repair (04/23/20) History of nasal septoplasty (01/05/19) History of surgery SCS Permanent w/sed 11/10 SCS Trial w/sed 10/27/201910/09 MBB L2-S1 bilat w/o sed 09/24/201705/09 LESI #1 L4-5 w/o sed 04/28/2017 History of tonsillectomy (~194) S/P aortic valve replacement Family History Family/Other Abdominal aortic aneurysm (AAA) Malignant tumor of breast Malignant tumor of colon Coronary arteriosclerosis DM type 2 (diabetes mellitus, type 2) Carcinoma of prostate Stroke Mother Malignant tumor of breast Aunt DM type 2 (diabetes mellitus, type 2) Father Heart attack Stroke Uncle Carcinoma of prostate Social History household members: other marital status: education level: college smoking status: Former smoker alcohol intake frequency: does not drink substance use type: does not use seatbelt use: always working smoke detector in home: Yes MEDS/ALLERGIES Home Medications and Allergies Home Medications Medication Instructions Recorded Confirmed Type allopurinol 100 mg tablet 200 mg PO HS 01/12/23 04/07/23 History aspirin 81 mg tablet,delayed 81 mg PO QDAY 01/12/23 04/07/23 History release dutasteride 0.5 mg capsule 0.5 mg PO HS 01/12/23 04/07/23 History ezetimibe 10 mg tablet 10 mg PO HS 01/12/23 04/07/23 History lansoprazole 30 mg capsule,delayed 30 mg PO QDAY 02/05/23 04/07/23 History release potassium chloride 10 mEq 20 meq PO BID 02/05/23 04/07/23 History tablet,extended release tamsulosin 0.4 mg capsule (Flomax) 0.4 mg PO BID 02/05/23 04/07/23 History topiramate 100 mg tablet 150 mg PO BID 02/05/23 04/07/23 History torsemide 100 mg tablet 100 mg PO BID 02/05/23 04/07/23 History Jevity 8 oz feeding tube Q4H #1 Bottle 02/10/23 04/07/23 Rx Advanced Probiotic 1 cap PO QAM 04/07/23 04/07/23 History cetirizine 10 mg tablet (Zyrtec) 10 mg PO QDAY PRN Allergy Symptoms 04/07/23 04/07/23 History docusate sodium 100 mg capsule 100 mg PO HS 04/07/23 04/07/23 History (Stool Softener) duloxetine 60 mg capsule,delayed 30 mg PO QDAY 04/07/23 04/07/23 History release ferrous sulfate 325 mg (65 mg 325 mg PO QDAY 04/07/23 04/07/23 History iron) tablet,delayed release guaifenesin 600 mg tablet, 600 mg PO QAM 04/07/23 04/07/23 History extended release 12 hr (Mucinex) metoclopramide HCl 10 mg tablet 10 mg PO BID 04/07/23 04/07/23 History ondansetron 8 mg disintegrating 8 mg PO Q6H PRN Nausea 04/07/23 04/07/23 History tablet oxycodone-acetaminophen 7.5 mg-325 1 tab PO BID 04/07/23 04/07/23 History mg tablet polyethylene glycol 3350 17 gram 17 g PO HS 04/07/23 04/07/23 History oral powder packet (Miralax) pregabalin 225 mg capsule 225 mg PO BID 04/07/23 04/07/23 History sennosides 8.6 mg tablet (Senokot) 8.6 mg PO QHS 04/07/23 04/07/23 History warfarin 5 mg tablet 7.5 mg PO QDAY 04/07/23 04/07/23 History Allergies Allergy/AdvReac Type Severity Reaction Status Date / Time omeprazole Allergy Mild Rash Verified 04/07/23 15:19 atorvastatin Allergy Unknown unknown Verified 04/07/23 12:55 Sulfa (Sulfonamide AdvReac Severe toxic Verified 04/07/23 15:19 Antibiotics) hepatitis Zolpidem [From Ambien] AdvReac Mild sleep Verified 04/07/23 15:19 walking EXAM Constitutional Vitals: Temp Pulse Resp BP Pulse Ox O2 Del Method O2 Flow Rate 97.7 F 67 21 120/64 91 Room Air 1 04/08/23 08:00 04/08/23 12:19 04/08/23 12:19 04/08/23 12:01 04/08/23 12:19 04/08/23 10:01 04/08/23 06:01 General appearance: cooperative and obese Head Head exam: Present atraumatic, normal inspection and normocephalic Eye Eye exam: Present normal appearance Respiratory Respiratory exam: Absent accessory muscle use Cardiovascular Cardiovascular exam: Present bradycardia Additional comments: sinus iman/aflutter GI/Abdominal Additional comments: black stool Rectal Rectal exam: Present black stool DATA Data Completed and Pending Labs: Labs from last 24 hours 04/08/23 04/08/23 04/08/23 07:03 05:23 05:22 WBC 10.8 RBC 3.05 L Hgb 9.5 L Hct 27.1 L POC Hct MCV 88.9 MCH 31.1 MCHC 35.1 RDW 14.9 H Plt Count 222 MPV 10.6 Immature Gran % (Auto) 0.4 Neut % (Auto) 67.0 Lymph % (Auto) 22.5 Canadian % (Auto) 8.3 Eos % (Auto) 1.0 Baso % (Auto) 0.8 Lymph # (Auto) 2.43 [place] # (Auto) 0.90 Eos # (Auto) 0.11 Baso # (Auto) 0.09 Immature Gran # 0.04 Absolute Neutrophils 7.21 PT 28.4 H INR 2.6 H POC Sodium Sodium 144 POC Potassium Potassium 3.9 POC Chloride Chloride 109 H Carbon Dioxide 25 POC Total CO2 Anion Gap 10.0 POC BUN BUN 64 H Creatinine 2.0 H POC Creatinine GFR Calculation 30 Glucose 108 H POC Glucose Hemoglobin A1c Estim Average Glucose Calcium 8.2 L POC WB Ioniz Calcium Total Bilirubin AST ALT Alkaline Phosphatase Total Protein Albumin Globulin Albumin/Globulin Ratio 04/08/23 04/08/23 04/07/23 05:00 01:10 14:05 WBC 12.3 H RBC 2.99 L Hgb 9.3 L Hct 26.7 L POC Hct MCV 89.3 MCH 31.1 MCHC 34.8 RDW 14.6 H Plt Count 220 MPV 10.4 Immature Gran % (Auto) 0.3 Neut % (Auto) 74.3 Lymph % (Auto) 17.6 Canadian % (Auto) 7.0 Eos % (Auto) 0.2 Baso % (Auto) 0.6 Lymph # (Auto) 2.17 Canadian # (Auto) 0.86 Eos # (Auto) 0.02 Baso # (Auto) 0.07 Immature Gran # 0.04 Absolute Neutrophils 9.17 H PT 41.7 H INR 4.2 H POC Sodium Sodium POC Potassium Potassium POC Chloride Chloride Carbon Dioxide POC Total CO2 Anion Gap POC BUN BUN Creatinine POC Creatinine GFR Calculation Glucose POC Glucose Hemoglobin A1c 5.1 Estim Average Glucose 100 Calcium POC WB Ioniz Calcium Total Bilirubin AST ALT Alkaline Phosphatase Total Protein Albumin Globulin Albumin/Globulin Ratio 04/07/23 04/07/23 04/07/23 13:12 13:12 13:12 WBC 14.3 H RBC 2.95 L Hgb 9.1 L Hct 27.1 L POC Hct MCV 91.9 MCH 30.8 MCHC 33.6 RDW 15.4 H Plt Count 278 MPV 10.9 Immature Gran % (Auto) 0.4 Neut % (Auto) 49.2 Lymph % (Auto) 38.8 Canadian % (Auto) 8.6 Eos % (Auto) 2.3 Baso % (Auto) 0.7 Lymph # (Auto) 5.54 H Canadian # (Auto) 1.22 H Eos # (Auto) 0.33 Baso # (Auto) 0.10 Immature Gran # 0.05 Absolute Neutrophils 7.02 PT TNP INR TNP POC Sodium Sodium 137 POC Potassium Potassium 3.9 POC Chloride Chloride 100 Carbon Dioxide 22 POC Total CO2 Anion Gap 15.0 POC BUN BUN 57 H Creatinine 2.2 H POC Creatinine GFR Calculation 27 Glucose 205 H POC Glucose Hemoglobin A1c Estim Average Glucose Calcium 8.2 L POC WB Ioniz Calcium Total Bilirubin 0.2 AST 21 ALT 21 Alkaline Phosphatase 74 Total Protein 5.4 L Albumin 3.4 Globulin 2.0 L Albumin/Globulin Ratio 1.7 04/07/23 12:59 WBC RBC Hgb Hct POC Hct 28.0 L MCV MCH MCHC RDW Plt Count MPV Immature Gran % (Auto) Neut % (Auto) Lymph % (Auto) Canadian % (Auto) Eos % (Auto) Baso % (Auto) Lymph # (Auto) Canadian # (Auto) Eos # (Auto) Baso # (Auto) Immature Gran # Absolute Neutrophils PT INR POC Sodium 138 Sodium POC Potassium 3.8 Potassium POC Chloride 101 Chloride Carbon Dioxide POC Total CO2 22.0 Anion Gap POC BUN 53 H BUN Creatinine POC Creatinine 2.7 H GFR Calculation Glucose POC Glucose 201 H Hemoglobin A1c Estim Average Glucose Calcium POC WB Ioniz Calcium 1.02 L Total Bilirubin AST ALT Alkaline Phosphatase Total Protein Albumin Globulin Albumin/Globulin Ratio A/P Assessment and plan (1) Acute upper GI bleed: Assessment and plan: Discussed case with Dr. Gregory. We suspect his gastric ulcer was secondary to his baby ASA. He denies NSAID use. It is our recommendation warfarin be resumed tomorrow at a lower dose. He should avoid NSAIDS and ASA entirely. Given his lack of bleeding since EGD, his risk of rebleed is less than 1 percent. He should remain on PPI BID for the nursing home. He may resume a clear liquid diet. Status: Acute Time Spent With Patient Time: Total time spent is greater than 50% in coordination of care (as documented) at patient's floor/unit and/or counseling patient: Initial: Total time with patient: Less than 40 minutes
[2023-04-08] MEDS ORDERED: JEVITY feeding tube SCH (12:45)
[2023-04-08] MEDS ORDERED: ONDANSETRON 4 MG ODT TABLET SL PRN (13:14)
[2023-04-08 13:49] LABS: Basophils # (Auto) 0.09 K/mcL (0.00-0.30); Basophils % (Auto) 0.8 % (0.0-2.0); Eosinophils # (Auto) 0.11 K/mcL (0.00-0.70); Eosinophils % (Auto) 0.9 % (0.0-7.0); Hematocrit 29.2 % (40.1-51.0); Lymphocytes # (Auto) 2.98 K/mcL (1.50-4.80); Lymphocytes % (Auto) 25.4 % (15.5-49.0); Mean Cell Volume 90.1 fL (80.0-100.0); Mean Corpuscular HGB Conc 34.2 g/dL (31.0-36.0); Mean Platelet Volume 10.4 fL (8.8-12.5); Monocytes # (Auto) 0.87 K/mcL (0.10-0.90); Monocytes % (Auto) 7.4 % (1.0-12.0); Neutrophils % (Auto) 65.1 % (38.0-78.0); Platelet Count 229 K/mcL (140-440); RBC 3.24 M/mcL (4.63-6.08); Red Cell Distribution Width 15.3 % (11.5-14.5); WBC 11.8 K/mcL (4.5-11.0)
--- NOTE | 2023-04-08 14:20 | Internal Med Progress Note ---
SUBJECTIVE Subjective Patient information: Note initiated : 04/08/23 at 2:18 pm Service Date, if different from initiated Date: [] Patient: Ishmael Miller 82 y/o M admitted on 04/08/23 for dark colored stools. Chief Complaint: [] Interval history: History of present illness: Patient is a 82 years old male with history of mechanical valve chronically anticoagulated on warfarin, CHF on torsemide, hypertension, GERD, restless leg syndrome, BPH, gout, iron deficiency anemia, CHF, chronic back pain, GERD, neuropathy, foot ulcer, tobacco use presented with 1 day history of melena, and upper abdominal pain. This progressed and he passed a large black tarry stool in the morning. Patient reported no hematemesis. There is no prior history of GI bleed. He has a feeding tube which was placed in June 2023. Apparently this was placed due to complications of aspiration. Patient was hypotensive with blood pressure of 90/66, tachycardia 100 bpm. WBC 14.3, hemoglobin 9.1, INR 4.2, BUN 57, creatinine 2.2 consistent with chronic kidney disease, glucose 205. Normal LFTs. Per verbal report patient went for urgent endoscopy and was found to have gastric ulcer with bleeding vessel status post epinephrine and hemostasis was secured. Dr. Alva from GI's recommended to keep patient on Protonix, give 1 unit of plasma, and 2 units of PRBC and can resume therapeutic Lovenox tomorrow. 04/08 It was reported patient had x4 bloody stools, RN reported was bright red blood. No nausea or vomiting. His vitals are stable. He is satting 95% on 1 L nasal cannula oxygen which likely can be weaned off. He received 2 units PRBC and hemoglobin is 9.5, hematocrit 27, INR down to 2.6 from 4.2 after receiving FFPx1. Cr 2.0 down from 2.2, BUN 64 up from 57. Procedure note not available to me. Patient reports left upper abdominal pain has resolved. He will be reviewed by GI and then decision can be made to resume his anticoagulation. 04/09 Review of Systems: denies headache/fever/chills/nausea/vomiting/chest or abdominal pain/cough/dyspnea/diarrhea. Otherwise see above. PHYSICAL EXAM General: Alert, Awake, No acute Distress, obese, chronically ill-appearing Eyes/N/T: EOMI, no scleral icterus, Head/Neck: neck supple, full ROM, CV: RRR, 2/6SM, Pulm: Clear b/l, no wheezing/rhonchi/rales, no respiratory distress Abd: soft, nontender, +BS x4 Ext: no clubbing/cyanosis/edema, nontender Neuro: Alert, no focal deficits, moves all extremities, , sensations intact b/l upper/lower Psychiatric: Skin: warm/dry, normal color Constitutional Vitals: Vital Signs Temp Pulse Resp BP Pulse Ox O2 Del Method O2 Flow Rate 98.5 F 67 21 120/64 95 Room Air 1 04/08/23 12:43 04/08/23 12:19 04/08/23 12:19 04/08/23 12:01 04/08/23 14:00 04/08/23 14:00 04/08/23 06:01 Period Temp Pulse Resp BP Sys/Denise Pulse Ox O2 Del Method O2 Flow Rate Last 24 Hr 97.3 F-98.5 F 41-116 13-33 81-137/51-82 91-100 Nasal Cannula- Room Air 1-3 Intake and Output 04/08/23 04/08/23 04/08/23 03:59 11:59 19:59 Intake Total 686 0 436 Output Total 225 1 Balance 461 -1 436 Weight 92.079 kg Intake & Output: Intake & Output 04/08/23 04/08/23 04/08/23 03:59 11:59 19:59 Intake Total 686 0 436 Output Total 225 1 Balance 461 -1 436 Weight 92.079 kg Intake: IV 326 Sodium Chloride 0.9% 250 ml @ 250 20 mls/hr IV .[id number] [facility] Rx#: [id number] Protonix 80 mg In Sodium 76 Chloride 0.9% 100 ml @ 8 MG/HR 10 mls/hr IV Q10H [facility] Rx#: [id number] Oral 0 436 Blood Product 360 Output: Void Amount 225 0 # of times incontinent of urine 1 Other: Urine Appearance Clear Urine Color Yellow Dark Yellow Urine Odor Normal Normal Stool Size Small Small Stool Color Brown Dark Red Blood Black Dark Red Blood Stool Consistency Liquid Liquid # of times incontinent of 1 1 Bowels OBJ DATA Labs 04/08/23 13:13 04/08/23 05:23 Labs: Abnormal Lab Results 04/08/23 04/08/23 04/08/23 13:13 07:03 05:23 WBC 11.8 H RBC 3.24 L 3.05 L Hgb 10.0 L 9.5 L Hct 29.2 L 27.1 L POC Hct RDW 15.3 H 14.9 H Lymph # (Auto) [place] # (Auto) Absolute Neutrophils PT INR Chloride 109 H POC BUN BUN 64 H Creatinine 2.0 H POC Creatinine Glucose 108 H POC Glucose Calcium 8.2 L POC WB Ioniz Calcium Total Protein Globulin 04/08/23 04/08/23 04/07/23 05:22 01:10 14:05 WBC 12.3 H RBC 2.99 L Hgb 9.3 L Hct 26.7 L POC Hct RDW 14.6 H Lymph # (Auto) [place] # (Auto) Absolute Neutrophils 9.17 H PT 28.4 H 41.7 H INR 2.6 H 4.2 H Chloride POC BUN BUN Creatinine POC Creatinine Glucose POC Glucose Calcium POC WB Ioniz Calcium Total Protein Globulin 04/07/23 04/07/23 04/07/23 13:12 13:12 12:59 WBC 14.3 H RBC 2.95 L Hgb 9.1 L Hct 27.1 L POC Hct 28.0 L RDW 15.4 H Lymph # (Auto) 5.54 H [place] # (Auto) 1.22 H Absolute Neutrophils PT INR Chloride POC BUN 53 H BUN 57 H Creatinine 2.2 H POC Creatinine 2.7 H Glucose 205 H POC Glucose 201 H Calcium 8.2 L POC WB Ioniz Calcium 1.02 L Total Protein 5.4 L Globulin 2.0 L Meds: Medications Cetirizine HCl (Cetirizine 10 Mg Tablet) 10 mg PO QDAY PRN PRN Reason: Allergy Symptoms Docusate Sodium (Docusate Sodium 100 Mg Capsule) 100 mg PO BID [facility] Last Admin: 04/08/23 09:19 Dose: Not Given Duloxetine HCl (Duloxetine 30 Mg Capsule) 30 mg PO DAILY [facility] Dutasteride (Dutasteride 0.5 Mg Capsule) 0.5 mg PO HS [facility] Ezetimibe (Ezetimibe 10 Mg Tablet) 10 mg PO HS [facility] Ferrous Sulfate (Ferrous Sulfate 325 Mg Tablet) 325 mg PO QACOX [place] Pantoprazole Sodium 80 mg/ (Sodium Chloride) 100 mls @ 10 mls/hr IV Q10H [facility] Last Admin: 04/08/23 12:39 Dose: Not Given Sodium Chloride (Sodium Chloride 0.9%) 250 mls @ 20 mls/hr IV .[id number] [facility] Last Admin: 04/08/23 12:15 Dose: Not Given Lactobacillus Rhamnosus (Lactobacillus 1 Capsule) 1 cap PO QAM [facility] Metoclopramide HCl (Metoclopramide 10 Mg Tablet) 10 mg PO BIDP PRN PRN Reason: Nausea Ondansetron HCl (Ondansetron 4 Mg/2 Ml Vial) 4 mg IV Q4HP PRN; Protocol PRN Reason: Nausea And Vomiting Ondansetron HCl (Ondansetron 4 Mg Odt Tablet) 8 mg SL Q6HP PRN PRN Reason: Nausea And Vomiting Oxycodone HCl (Oxycodone Ir 5 Mg Tablet) 2.5 mg PO BIDP PRN PRN Reason: Pain Oxycodone/Acetaminophen (Oxycodone/Apap 5/325mg Tablet) 1 tab PO BIDP PRN PRN Reason: Pain Pregabalin (Pregabalin 75 Mg Capsule) 225 mg PO BID [facility] Senna (Sennosides 1 Tablet) 1 tab PO QHS [facility] Sodium Chloride (0.9 % Sodium Chloride 10 Ml Syringe) 10 ml IV Q8 [facility] Last Admin: 04/08/23 14:07 Dose: 10 ml Tamsulosin HCl (Tamsulosin 0.4 Mg Capsule) 0.4 mg PO BID [facility] Topiramate (Topiramate 100 Mg Tablet) 150 mg PO BID [facility] Torsemide (Torsemide 20 Mg Tablet) 100 mg PO BID [facility] A/P Narrative A/P Narrative: Assessment and plan *Upper GI bleed: 2/2 Gastric ulcer with bleeding vessel s/p epinephrine -EGD by Dr. Gregory *Mechanical heart valve on chronic anticoagulation: on warfarin -Supratherapeutic INR, 4.2 *acute blood loss Anemia: -s/p 2 units PRBC and 1 unit FFP *h/o diastlic CHF: *CKD III: *HLD: cont zetia *GERD: *Restless leg syndrome *Tube feed dependent *chr pain: on opioids *Depression: Continue psych meds *Obesity: BMI 32, lifestyle modification Plan: -monitor H&H, prn transfusions -Warfarin to start 5/18, d/c home aspirin -Protonix drip -clear diet. -Continue appropriete home medications -PT/OT -ppx: SCD Full code Time Spent With Patient Time: Total time spent is greater than 50% in coordination of care (as documented) at patient's floor/unit and/or counseling patient: QUALITY VTE Deep Vein Thrombosis/Pulmonary Embolism Present on Admission: No
[2023-04-08] MEDS: oxyCODONE/APAP 5/325MG TABLET PO PRN (17:44)
[2023-04-08] MEDS: oxyCODONE IR 5 MG TABLET PO PRN (17:46)
[2023-04-08] MEDS ORDERED: PANTOPRAZOLE 40 MG VIAL IV ONE (19:11)
[2023-04-08] MEDS ORDERED: NON FORMULARY MEDICATION 1 DOSE MISCELL (Oxycodone-Acetaminophen 7.5-325 mg tablet) PO SCH (21:00)
[2023-04-08] MEDS ORDERED: DOCUSATE SODIUM 100 MG CAPSULE PO SCH (21:00)
[2023-04-08] MEDS ORDERED: METOCLOPRAMIDE 10 MG TABLET PO PRN (21:00)
[2023-04-08] MEDS: PREGABALIN 75 MG CAPSULE PO SCH (21:05)
[2023-04-08] MEDS: DUTASTERIDE 0.5 MG CAPSULE PO SCH (21:05)
[2023-04-08] MEDS: TORSEMIDE 20 MG TABLET PO SCH (21:06)
[2023-04-08] MEDS: EZETIMIBE 10 MG TABLET PO SCH (21:06)
[2023-04-08] MEDS: TOPIRAMATE 100 MG TABLET PO SCH (21:06)
[2023-04-08] MEDS: SENNOSIDES 1 TABLET PO SCH (21:06)
[2023-04-08] MEDS: TAMSULOSIN 0.4 MG CAPSULE PO SCH (21:06)
[2023-04-09] MEDS: 0.9 % SODIUM CHLORIDE 250 ML IV SCH (05:51)
[2023-04-09] MEDS: 0.9 % SODIUM CHLORIDE 10 ML SYRINGE IV SCH ×4 (05:51→21:37)
[2023-04-09 06:25] LABS: Basophils # (Auto) 0.08 K/mcL (0.00-0.30); Eosinophils # (Auto) 0.34 K/mcL (0.00-0.70); Eosinophils % (Auto) 4.2 % (0.0-7.0); Hematocrit 26.2 % (40.1-51.0); Hemoglobin 8.4 g/dL (13.7-17.5); Lymphocytes # (Auto) 2.23 K/mcL (1.50-4.80); Lymphocytes % (Auto) 27.3 % (15.5-49.0); Mean Cell Volume 95.3 fL (80.0-100.0); Mean Corpuscular HGB Conc 32.1 g/dL (31.0-36.0); Mean Platelet Volume 10.7 fL (8.8-12.5); Monocytes # (Auto) 0.78 K/mcL (0.10-0.90); Monocytes % (Auto) 9.6 % (1.0-12.0); Neutrophils % (Auto) 57.7 % (38.0-78.0); Platelet Count 194 K/mcL (140-440); RBC 2.75 M/mcL (4.63-6.08); Red Cell Distribution Width 15.7 % (11.5-14.5); WBC 8.2 K/mcL (4.5-11.0)
--- NOTE | 2023-04-09 07:00 | EKG ---
[facility] Test Date: 2023-04-07 Pat Name: Ishmael Miller Department: ED Room: Gender: Male [employer]: wsfg : 1940 Requested By: Kiko Gallardo Order Number: [id number] Reading MD: Ishmael Mancera Measurements Intervals [place] Rate: 103 P: 46 DE: 164 QRS: -22 QRSD: 79 T: 86 QT: 346 QTc: 453 Interpretive Statements Sinus tachycardia Abnormal R-wave progression, early transition Electronically Signed On 04-09-2023 7:00:30 PDT by Ishmael Mancera /store/M0/[id number]/[id number].pdf
[2023-04-09 07:51] LABS: ALT/SGPT 14 U/L (<40); AST/SGOT 14 U/L (<40); Albumin 3.1 gm/dL (3.2-5.2); Albumin/Globulin Ratio 1.8 (1.0-2.3); Alkaline Phosphatase 63 U/L (39-117); Bilirubin,Direct < 0.2 mg/dL (0-0.3); Bilirubin,Total 0.4 mg/dL (0.1-1.0); Blood Urea Nitrogen 46 mg/dL (8-23); Calcium 8.1 mg/dL (8.6-10.4); Carbon Dioxide 25 mmol/L (22-30); Chloride 107 mmol/L (96-108); Globulin 1.7 gm/dL (2.2-3.7); Glomerular Filtration Rate 32; Glucose 99 mg/dL (70-105); Lactate Dehydrogenase 180 U/L (135-225); Phosphorous 3.2 mg/dL (2.5-4.5); Triglycerides 150 mg/dL (<150); Uric Acid 7.1 mg/dL (2.5-8.0)
--- NOTE | 2023-04-09 08:34 | Internal Med Progress Note ---
SUBJECTIVE Subjective Patient information: Note initiated : 04/09/23 at 8:33 am Service Date, if different from initiated Date: [] Patient: Ishmael Miller 82 y/o M admitted on 04/08/23 for dark colored stools. Chief Complaint: [] Interval history: History of present illness: Patient is a 82 years old male with history of mechanical valve chronically anticoagulated on warfarin, CHF on torsemide, hypertension, GERD, restless leg syndrome, BPH, gout, iron deficiency anemia, CHF, chronic back pain, GERD, neuropathy, foot ulcer, tobacco use presented with 1 day history of melena, and upper abdominal pain. This progressed and he passed a large black tarry stool in the morning. Patient reported no hematemesis. There is no prior history of GI bleed. He has a feeding tube which was placed in June 2023. Apparently this was placed due to complications of aspiration. Patient was hypotensive with blood pressure of 90/66, tachycardia 100 bpm. WBC 14.3, hemoglobin 9.1, INR 4.2, BUN 57, creatinine 2.2 consistent with chronic kidney disease, glucose 205. Normal LFTs. Per verbal report patient went for urgent endoscopy and was found to have gastric ulcer with bleeding vessel status post epinephrine and hemostasis was secured. Dr. Alva from GI's recommended to keep patient on Protonix, give 1 unit of plasma, and 2 units of PRBC and can resume therapeutic Lovenox tomorrow. 04/08 It was reported patient had x4 bloody stools, RN reported was bright red blood. No nausea or vomiting. His vitals are stable. He is satting 95% on 1 L nasal cannula oxygen which likely can be weaned off. He received 2 units PRBC and hemoglobin is 9.5, hematocrit 27, INR down to 2.6 from 4.2 after receiving FFPx1. Cr 2.0 down from 2.2, BUN 64 up from 57. Procedure note not available to me. Patient reports left upper abdominal pain has resolved. He will be reviewed by GI and then decision can be made to resume his anticoagulation. 04/09 Patient says he slept okay. Nurse reported only a small smear of bloody stool last night. Hemoglobin dropped to 8.5 today. Possibly residual and from IVF given the lack of continued bleeding. Will monitor closely and follow-up H&H. Also note patient is hypokalemic. And restart home potassium. Patient does take high-dose torsemide. Start warfarin today per pharmacy. Review of Systems: denies headache/fever/chills/nausea/vomiting/chest or abdominal pain/cough/dyspnea/diarrhea. Otherwise see above. PHYSICAL EXAM General: Alert, Awake, No acute Distress, obese, chronically ill-appearing Eyes/N/T: EOMI, no scleral icterus, Head/Neck: neck supple, full ROM, CV: RRR, 2/6SM, Pulm: Clear b/l, no wheezing/rhonchi/rales, no respiratory distress Abd: soft, nontender, +BS x4 Ext: no clubbing/cyanosis, mild b/l LE edema, nontender Neuro: Alert, no focal deficits, moves all extremities, , sensations intact b/l upper/lower Psychiatric: Skin: warm/dry, normal color Constitutional Vitals: Vital Signs Temp Pulse Resp BP Pulse Ox O2 Del Method O2 Flow Rate 97 F 69 16 105/65 96 Nasal Cannula 2 04/09/23 07:37 04/09/23 07:37 04/09/23 03:55 04/09/23 07:37 04/09/23 07:37 04/09/23 07:37 04/09/23 07:37 Period Temp Pulse Resp BP Sys/Denise Pulse Ox O2 Del Method O2 Flow Rate Last 24 Hr 97 F-98.7 F 26-135 13-30 94-128/51-65 90-100 Nasal Cannula- Room Air 2-2 Intake and Output 04/08/23 04/09/23 04/09/23 19:59 03:59 11:59 Intake Total 20070 30 Output Total 750 1126 500 Balance 1258 -86 470 Weight 92.079 kg 93.712 kg Intake & Output: Intake & Output 04/08/23 04/09/23 04/09/23 19:59 03:59 11:59 Intake Total 2007 1040 30 Output Total 750 1126 500 Balance 1258 -86 470 Weight 92.079 kg 93.712 kg Intake: IV 100 Protonix 80 mg In Sodium 100 Chloride 0.9% 100 ml @ 8 MG/HR 10 mls/hr IV Q10H [facility] Rx#: [id number] Oral 2007 940 Tube Feeding 0 30 Output: Void Amount 1125 500 # of times incontinent of urine 1 Urine/Stool Mix 750 Other: Percent of Meal Consumed 100% Feeding Ability Independent Urine Appearance Clear Clear Urine Color Yellow Yellow Pale Pale Urine Odor Strong Normal Stool Size Small Smear Stool Color Dark Red Blood Bright Red Blood Stool Consistency Liquid Watery # Voids 1 # Bowel Movements 1 # of times incontinent of 1 Bowels OBJ DATA Labs 04/09/23 05:15 04/09/23 05:15 Labs: Abnormal Lab Results 04/09/23 04/09/23 04/08/23 05:15 05:15 13:13 WBC 11.8 H RBC 2.75 L 3.24 L Hgb 8.4 L 10.0 L Hct 26.2 L 29.2 L POC Hct RDW 15.7 H 15.3 H Lymph # (Auto) [place] # (Auto) Absolute Neutrophils PT INR Potassium 2.7 L* Chloride POC BUN BUN 46 H Creatinine 1.9 H POC Creatinine Glucose POC Glucose Calcium 8.1 L POC WB Ioniz Calcium Total Protein 4.8 L Albumin 3.1 L Globulin 1.7 L Triglycerides 150 H 04/08/23 04/08/23 04/08/23 07:03 05:23 05:22 WBC RBC 3.05 L Hgb 9.5 L Hct 27.1 L POC Hct RDW 14.9 H Lymph # (Auto) [place] # (Auto) Absolute Neutrophils PT 28.4 H INR 2.6 H Potassium Chloride 109 H POC BUN BUN 64 H Creatinine 2.0 H POC Creatinine Glucose 108 H POC Glucose Calcium 8.2 L POC WB Ioniz Calcium Total Protein Albumin Globulin Triglycerides 04/08/23 04/07/23 04/07/23 01:10 14:05 13:12 WBC 12.3 H RBC 2.99 L Hgb 9.3 L Hct 26.7 L POC Hct RDW 14.6 H Lymph # (Auto) [place] # (Auto) Absolute Neutrophils 9.17 H PT 41.7 H INR 4.2 H Potassium Chloride POC BUN BUN 57 H Creatinine 2.2 H POC Creatinine Glucose 205 H POC Glucose Calcium 8.2 L POC WB Ioniz Calcium Total Protein 5.4 L Albumin Globulin 2.0 L Triglycerides 04/07/23 04/07/23 13:12 12:59 WBC 14.3 H RBC 2.95 L Hgb 9.1 L Hct 27.1 L POC Hct 28.0 L RDW 15.4 H Lymph # (Auto) 5.54 H [place] # (Auto) 1.22 H Absolute Neutrophils PT INR Potassium Chloride POC BUN 53 H BUN Creatinine POC Creatinine 2.7 H Glucose POC Glucose 201 H Calcium POC WB Ioniz Calcium 1.02 L Total Protein Albumin Globulin Triglycerides Meds: Medications Cetirizine HCl (Cetirizine 10 Mg Tablet) 10 mg PO QDAY PRN PRN Reason: Allergy Symptoms Docusate Sodium (Docusate Sodium 100 Mg Capsule) 100 mg PO BID [facility] Last Admin: 04/08/23 21:21 Dose: Not Given Duloxetine HCl (Duloxetine 30 Mg Capsule) 30 mg PO DAILY [facility] Dutasteride (Dutasteride 0.5 Mg Capsule) 0.[address] [facility] Last Admin: 04/08/23 21:05 Dose: 0.5 mg Ezetimibe (Ezetimibe 10 Mg Tablet) [address] [facility] Last Admin: 04/08/23 21:06 Dose: 10 mg Ferrous Sulfate (Ferrous Sulfate 325 Mg Tablet) [facility] Pantoprazole Sodium 80 mg/ (Sodium Chloride) 100 mls @ 10 mls/hr IV Q10H [facility] Last Admin: 04/08/23 21:20 Dose: 8 mg/hr, 10 mls/hr Sodium Chloride (Sodium Chloride 0.9%) 250 mls @ 20 mls/hr IV .[id number] [facility] Last Admin: 04/09/23 05:51 Dose: Not Given Lactobacillus Rhamnosus (Lactobacillus 1 Capsule) [facility] Metoclopramide HCl (Metoclopramide 10 Mg Tablet) 10 mg PO BIDP PRN PRN Reason: Nausea Ondansetron HCl (Ondansetron 4 Mg/2 Ml Vial) 4 mg IV Q4HP PRN; Protocol PRN Reason: Nausea And Vomiting Ondansetron HCl (Ondansetron 4 Mg Odt Tablet) 8 mg SL Q6HP PRN PRN Reason: Nausea And Vomiting Oxycodone HCl (Oxycodone Ir 5 Mg Tablet) 2.5 mg PO BIDP PRN PRN Reason: Pain Last Admin: 04/08/23 17:46 Dose: 2.5 mg Oxycodone/Acetaminophen (Oxycodone/Apap 5/325mg Tablet) 1 tab PO BIDP PRN PRN Reason: Pain Last Admin: 04/08/23 17:44 Dose: 1 tab Pregabalin (Pregabalin 75 Mg Capsule) 225 mg PO BID [facility] Last Admin: 04/08/23 21:05 Dose: 225 mg Senna (Sennosides 1 Tablet) 1 tab PO QHS [facility] Last Admin: 04/08/23 21:06 Dose: Not Given Sodium Chloride (0.9 % Sodium Chloride 10 Ml Syringe) 10 ml IV Q8 [facility] Last Admin: 04/09/23 05:51 Dose: 10 ml Tamsulosin HCl (Tamsulosin 0.4 Mg Capsule) 0.4 mg PO BID [facility] Last Admin: 04/08/23 21:06 Dose: 0.4 mg Topiramate (Topiramate 100 Mg Tablet) 150 mg PO BID [facility] Last Admin: 04/08/23 21:06 Dose: 150 mg Torsemide (Torsemide 20 Mg Tablet) 100 mg PO BID [facility] Last Admin: 04/08/23 21:06 Dose: 100 mg A/P Narrative A/P Narrative: Assessment and plan *Upper GI bleed: 2/2 Gastric ulcer with bleeding vessel s/p epinephrine -EGD by Dr. Gregory 04/08 *Mechanical heart valve on chronic anticoagulation: on warfarin -Supratherapeutic INR, 4.2 *acute blood loss Anemia: -s/p 2 units PRBC and 1 unit FFP -hgb 9.5>8.4 *h/o diastlic CHF: *O2 depentent: on 3L's @home but in processes of weaning down daytime *Hypokalemia: *CKD III: *HLD: cont zetia *GERD: *Restless leg syndrome *Tube feed dependent *chr pain: on opioids *Depression: Continue psych meds *Obesity: BMI 32, lifestyle modification Plan: -monitor H&H, prn transfusions -Warfarin to start, d/c home aspirin -Protonix to ppi bid, f/u EGD in 4 weeks -clear diet -Monitor and replace electrolytes, f/u today -restart home KCl -Continue appropriate home medications -wean down O2, IS -PT/OT -ppx: SCD Full code Time Spent With Patient Time: Total time spent is greater than 50% in coordination of care (as documented) at patient's floor/unit and/or counseling patient: Subsequent: Total time with patient: 50 - 65 Minutes QUALITY VTE Deep Vein Thrombosis/Pulmonary Embolism Present on Admission: No
[2023-04-09] MEDS ORDERED: POTASSIUM CHLORIDE 40 MEQ in DEXTROSE 5% IN WATER 500 ML IV PRN (08:38)
[2023-04-09] MEDS ORDERED: POTASSIUM CHLORIDE 40 MEQ in DEXTROSE 5% IN WATER 500 ML IV ONE (08:38)
[2023-04-09] MEDS ORDERED: POTASSIUM CHLORIDE 20 MEQ TABLET PO PRN ×2 (08:38)
[2023-04-09] MEDS ORDERED: MAGNESIUM SULFATE 2 GM/50 ML BAG IV PRN (08:38)
[2023-04-09] MEDS ORDERED: POTASSIUM CHLORIDE 20 MEQ TABLET PO ONE ×2 (08:38→18:56)
[2023-04-09] MEDS: oxyCODONE IR 5 MG TABLET PO PRN ×2 (09:25→21:37)
[2023-04-09] MEDS: TOPIRAMATE 100 MG TABLET PO SCH ×2 (09:26→21:37)
[2023-04-09] MEDS: oxyCODONE/APAP 5/325MG TABLET PO PRN ×2 (09:26→21:38)
[2023-04-09] MEDS: FERROUS SULFATE 325 MG TABLET PO SCH (09:27)
[2023-04-09] MEDS: TAMSULOSIN 0.4 MG CAPSULE PO SCH ×2 (09:27→21:40)
[2023-04-09] MEDS: LACTOBACILLUS 1 CAPSULE PO SCH (09:27)
[2023-04-09] MEDS: PREGABALIN 75 MG CAPSULE PO SCH ×2 (09:27→21:39)
[2023-04-09] MEDS: DULoxetine 30 MG CAPSULE PO SCH (09:28)
[2023-04-09] MEDS: DOCUSATE SODIUM 100 MG CAPSULE PO SCH ×2 (09:28→21:40)
[2023-04-09] MEDS: PANTOPRAZOLE 40 MG PACKET PO SCH ×2 (09:28→16:52)
[2023-04-09] MEDS: TORSEMIDE 20 MG TABLET PO SCH ×2 (09:28→21:37)
[2023-04-09] MEDS: PANTOPRAZOLE 80 MG in 0.9 % SODIUM CHLORIDE 100 ML IV SCH (10:01)
[2023-04-09 11:17] LABS: INR 2.8 (0.9-1.1); Prothrombin Time 30.7 sec (11.9-14.5)
[2023-04-09] MEDS ORDERED: IRON SUCROSE COMPLEX 100 MG/5 ML VIAL IV ONE (12:21)
--- NOTE | 2023-04-09 12:45 | Discharge Summary ---
Discharge Provider Provider IMPORTANT FOLLOW-UP INFORMATION FOR PCP: Patient information: Note initiated : 04/09/23 at 12:43 pm Service Date, if different from initiated Date: [] Patient: Ishmael Miller 82 y/o M admitted on 04/08/23 for dark colored stools. Chief Complaint: [] Date of admission: 04/08/23 12:25 Discharge date: 04/10/23 Primary care physician: Bj Zimmerman MD Consults: 04/07/23 14:18 Consult to Physician [CONS] Stat Comment: Consulting Provider: Sid Gregory Reason For Exam: Physician to Consult 04/07/23 15:58 Consult to Physician [CONS] Routine Comment: Consulting Provider: Rui Murillo Reason For Exam: Physician to Consult COURSE Hospital Course Hospital course: History of present illness: Patient is a 82 years old male with history of mechanical valve chronically anticoagulated on warfarin, CHF on torsemide, hypertension, GERD, restless leg syndrome, BPH, gout, iron deficiency anemia, CHF, chronic back pain, GERD, neuropathy, foot ulcer, tobacco use presented with 1 day history of melena, and upper abdominal pain. This progressed and he passed a large black tarry stool in the morning. Patient reported no hematemesis. There is no prior history of GI bleed. He has a feeding tube which was placed in June 2023. Apparently this was placed due to complications of aspiration. Patient was hypotensive with blood pressure of 90/66, tachycardia 100 bpm. WBC 14.3, hemoglobin 9.1, INR 4.2, BUN 57, creatinine 2.2 consistent with chronic kidney disease, glucose 205. Normal LFTs. Per verbal report patient went for urgent endoscopy and was found to have gastric ulcer with bleeding vessel status post epinephrine and hemostasis was secured. Dr. Alva from GI's recommended to keep patient on Protonix, give 1 unit of plasma, and 2 units of PRBC and can resume therapeutic Lovenox tomorrow. 04/08 It was reported patient had x4 bloody stools, RN reported was bright red blood. No nausea or vomiting. His vitals are stable. He is satting 95% on 1 L nasal cannula oxygen which likely can be weaned off. He received 2 units PRBC and hemoglobin is 9.5, hematocrit 27, INR down to 2.6 from 4.2 after receiving FFPx1. Cr 2.0 down from 2.2, BUN 64 up from 57. Procedure note not available to me. Patient reports left upper abdominal pain has resolved. He will be reviewed by GI and then decision can be made to resume his anticoagulation. 04/09 Patient says he slept okay. Nurse reported only a small smear of bloody stool last night. Hemoglobin dropped to 8.5 today. Possibly residual and from IVF given the lack of continued bleeding. Will monitor closely and follow-up H&H. Also note patient is hypokalemic. And restart home potassium. Patient does take high-dose torsemide. Start warfarin today per pharmacy. 04/10 No overnight event or new complaints. H&H stable. Patient stable for discharge. Assessment and plan *Upper GI bleed: 2/2 Gastric ulcer with bleeding vessel s/p epinephrine -EGD by Dr. Gregory 04/08 *Mechanical heart valve on chronic anticoagulation: on warfarin -Supratherapeutic INR, 4.2 *acute blood loss Anemia: -s/p 2 units PRBC and 1 unit FFP *h/o diastlic CHF: *O2 depentent: on 3L's @home but in processes of weaning down daytime *Hypokalemia: *CKD III: *HLD: cont zetia *GERD: *Restless leg syndrome *Tube feed dependent *chr pain: on opioids *Depression: Continue psych meds *Obesity: BMI 32, lifestyle modification Plan: -restart Warfarin, but with reduced dose just started prior to admit by PCP of 5mg daily instead of 7.5mg 3x's per week and5mg 4x's per week. -d/c home aspirin -Protonix to ppi bid, f/u EGD in 4 weeks Discharge diagnosis: Upper GI bleed from gastric ulcer acute blood loss anemia Secondary discharge diagnosis: History of diastolic heart failure mechanical heart valve on warfarin hypokalemia chronic kidney disease hyperlipidemia GERD restless leg tube feeding dependent chronic pain depression obesity Time Spent with Patient Time attestation: Total time spent providing and/or coordinating discharge services: Time spent: Greater than 30 minutes EXAM Constitutional Vitals: Temp Pulse Resp BP Pulse Ox O2 Del Method O2 Flow Rate 97.3 F 79 16 119/65 90 Room Air 2 04/09/23 12:00 04/09/23 12:00 04/09/23 12:00 04/09/23 12:00 04/09/23 12:00 04/09/23 12:00 04/09/23 08:00 Discharge Data Data Completed and Pending Labs on day of discharge: Labs from last 24 hours 04/09/23 04/09/23 04/09/23 10:12 05:15 05:15 WBC 8.2 RBC 2.75 L Hgb 8.4 L Hct 26.2 L MCV 95.3 MCH 30.5 MCHC 32.1 RDW 15.7 H Plt Count 194 MPV 10.7 Immature Gran % (Auto) 0.2 Neut % (Auto) 57.7 Lymph % (Auto) 27.3 [place] % (Auto) 9.6 Eos % (Auto) 4.2 Baso % (Auto) 1.0 Lymph # (Auto) 2.23 [place] # (Auto) 0.78 Eos # (Auto) 0.34 Baso # (Auto) 0.08 Immature Gran # 0.02 Absolute Neutrophils 4.71 PT 30.7 H INR 2.8 H Sodium 142 Potassium 2.7 L* Chloride 107 Carbon Dioxide 25 Anion Gap 10.0 BUN 46 H Creatinine 1.9 H GFR Calculation 32 Glucose 99 Uric Acid 7.1 Calcium 8.1 L Phosphorus 3.2 Magnesium 2.4 Total Bilirubin 0.4 Direct Bilirubin < 0.2 GGT 20 AST 14 ALT 14 Alkaline Phosphatase 63 Lactate Dehydrogenase 180 Total Protein 4.8 L Albumin 3.1 L Globulin 1.7 L Albumin/Globulin Ratio 1.8 Triglycerides 150 H 04/08/23 13:13 WBC 11.8 H RBC 3.24 L Hgb 10.0 L Hct 29.2 L MCV 90.1 MCH 30.9 MCHC 34.2 RDW 15.3 H Plt Count 229 MPV 10.4 Immature Gran % (Auto) 0.4 Neut % (Auto) 65.1 Lymph % (Auto) 25.4 [place] % (Auto) 7.4 Eos % (Auto) 0.9 Baso % (Auto) 0.8 Lymph # (Auto) 2.98 [place] # (Auto) 0.87 Eos # (Auto) 0.11 Baso # (Auto) 0.09 Immature Gran # 0.05 Absolute Neutrophils 7.65 PT INR Sodium Potassium Chloride Carbon Dioxide Anion Gap BUN Creatinine GFR Calculation Glucose Uric Acid Calcium Phosphorus Magnesium Total Bilirubin Direct Bilirubin GGT AST ALT Alkaline Phosphatase Lactate Dehydrogenase Total Protein Albumin Globulin Albumin/Globulin Ratio Triglycerides Discharge Plan Patient/Caregiver Discharge Instructions Activity: increase activity as tolerated Diet: Regular Diet Activity Restrictions/Additional Instructions: Avoid NSAIDs/ASA. Repeat EGD in 6 weeks. Prescriptions: New pantoprazole [Protonix] 40 mg tablet,delayed release (DR/EC) 40 mg PO BID Qty: 120 0RF Continued Jevity 8 oz feeding tube Q4H Qty: 1 0RF Rx Instructions: Jevity "1.2 PATT" 8fl oz. 8 bottles Q4H duloxetine 60 mg capsule,delayed release(DR/EC) 30 mg PO QDAY Advanced Probiotic 1 cap PO QAM sennosides [Senokot] 8.6 mg Tablet 8.6 mg PO QHS polyethylene glycol 3350 [Miralax] 17 gram Powder In Packet 17 g PO HS cetirizine [Zyrtec] 10 mg Tablet 10 mg PO QDAY PRN (Reason: Allergy Symptoms) docusate sodium [Stool Softener] 100 mg Capsule 100 mg PO HS ferrous sulfate 325 mg (65 mg iron) Tablet,Delayed Release (Dr/Ec) 325 mg PO QDAY pregabalin 225 mg capsule 225 mg PO BID guaifenesin [Mucinex] 600 mg Tablet Extended Release 12hr 600 mg PO QAM ondansetron 8 mg tablet,disintegrating 8 mg PO Q6H PRN (Reason: Nausea) oxycodone-acetaminophen 7.5-325 mg tablet 1 tab PO BID metoclopramide HCl 10 mg tablet 10 mg PO BID warfarin 5 mg tablet 5 mg PO QDAY Qty: 1 0RF allopurinol 100 mg tablet 200 mg PO HS dutasteride 0.5 mg capsule 0.5 mg PO HS ezetimibe 10 mg tablet 10 mg PO HS potassium chloride 10 mEq tablet extended release 20 meq PO BID topiramate 100 mg tablet 150 mg PO BID tamsulosin [Flomax] 0.4 mg capsule 0.4 mg PO BID torsemide 100 mg tablet 100 mg PO BID Discontinued aspirin 81 mg tablet,delayed release (DR/EC) 81 mg PO QDAY lansoprazole 30 mg capsule,delayed release(DR/EC) 30 mg PO QDAY Follow Up Plan Follow up with: Bj Zimmerman MD [Primary Care Provider] - Sid Gregory MD [Physician] - (Schedule follow up in 6 weeks) Patient Disposition: Home, Self-Care Prognosis: Fair Rehab Potential: Fair Overall status at discharge: patient is progressing back to baseline Discharge Orders: Discharge Order (Routine); Ordered 04/10/23 Ordered By: Tj Terrell [facility] Deep Vein Thrombosis/Pulmonary Embolism Present on Admission: No
[2023-04-09] MEDS ORDERED: IRON SUCROSE COMPLEX 200 MG in 0.9 % SODIUM CHLORIDE 100 ML IV ONE (13:00)
[2023-04-09] MEDS ORDERED: WARFARIN 7.5 MG TABLET PO ONE (14:00)
[2023-04-09] MEDS: POTASSIUM CHLORIDE 10 MEQ TABLET PO SCH (16:52)
[2023-04-09] MEDS: EZETIMIBE 10 MG TABLET PO SCH (21:39)
[2023-04-09] MEDS: DUTASTERIDE 0.5 MG CAPSULE PO SCH (21:39)
[2023-04-09] MEDS: SENNOSIDES 1 TABLET PO SCH (21:41)
[2023-04-09 23:42] LABS: Appearance,Urine CLEAR (Clear); Bilirubin,Urine Negative (Negative); Color,Urine STRAW; Culture Indicated,Urine No; Glucose,Urine (UA) Negative (Negative); Ketones,Urine Negative (Negative); Leukocyte Esterase,Urine Negative /uL (Negative); Mucus,Urine FEW /hpf; Nitrate,Urine Negative (Negative); Protein,Urine Negative (Negative); Specific Gravity,Urine 1.006 (1.000-1.035); Urine Blood >=1.0 mg/dL (Negative); Urine Hyaline Cast 3 /lph (0-2); Urine RBC 126 /hpf (0-3); Urine Squamous Epithelial Cell 0 /hpf (0-4); Urine WBC < 1 /hpf (0-4); Urobilinogen,Urine Negative
[2023-04-10] MEDS: 0.9 % SODIUM CHLORIDE 10 ML SYRINGE IV SCH ×2 (05:22→13:17)
[2023-04-10 06:43] LABS: Hemoglobin 8.3 g/dL (13.7-17.5)
[2023-04-10 07:06] LABS: INR 2.4 (0.9-1.1); Prothrombin Time 26.7 sec (11.9-14.5)
[2023-04-10] MEDS: PANTOPRAZOLE 40 MG PACKET PO SCH (07:12)
[2023-04-10 07:28] LABS: Blood Urea Nitrogen 38 mg/dL (8-23); Calcium 8.4 mg/dL (8.6-10.4); Carbon Dioxide 28 mmol/L (22-30); Chloride 103 mmol/L (96-108); Glomerular Filtration Rate 34; Glucose 91 mg/dL (70-105)
[2023-04-10] MEDS: FERROUS SULFATE 325 MG TABLET PO SCH (08:03)
[2023-04-10] MEDS: POTASSIUM CHLORIDE 10 MEQ TABLET PO SCH (08:03)
[2023-04-10] MEDS: oxyCODONE IR 5 MG TABLET PO PRN (08:11)
[2023-04-10] MEDS: oxyCODONE/APAP 5/325MG TABLET PO PRN (08:11)
[2023-04-10] MEDS: DOCUSATE SODIUM 100 MG CAPSULE PO SCH (09:00)
[2023-04-10] MEDS: TOPIRAMATE 100 MG TABLET PO SCH (09:01)
[2023-04-10] MEDS: LACTOBACILLUS 1 CAPSULE PO SCH (09:02)
[2023-04-10] MEDS: TORSEMIDE 20 MG TABLET PO SCH (09:02)
[2023-04-10] MEDS: DULoxetine 30 MG CAPSULE PO SCH (09:02)
[2023-04-10] MEDS: PREGABALIN 75 MG CAPSULE PO SCH (09:02)
[2023-04-10] MEDS: TAMSULOSIN 0.4 MG CAPSULE PO SCH (09:02)
[2023-04-10] MEDS ORDERED: WARFARIN 3 MG TABLET PO SCH (14:00)
== END 2023-04-10 14:22 | disposition home or self-care (01) | DRG 378 ==
LOC: ED 12:50 → ICU 15:18 → SUR 15:18 → MEDSUR 04-08 22:23
PROVIDERS: ADMIT Internal Medicine; ATTEND Internal Medicine